=== PATIENT | male | born 1985 | race Caucasian/White ===

== ENCOUNTER 2018-09-15 09:08 | Emergency (ER) | payer OTHER, SELFPAY ==
[2018-09-15 09:20] VITALS: BP 165/105; PULSE 73; RESP 18; TEMP 36.4; O2SAT 100; BMI 25.0
--- NOTE | 2018-10-05 08:09 | ED.EYEPROB ---
HPI - Eye Problem General Chief complaint: Eye Problems Stated complaint: PINK EYES Time Seen by Provider: 09/15/18 09:52 Source: patient Mode of arrival: ambulatory Limitations: no limitations History of Present Illness HPI Narrative: Patient comes emergency department complaining that his eyes are red, itching, and burning. Patient states he just flew back from [place] [place] with the , and that his eyes started to bother him on the flight. Patient states he has had some thick mucus discharge. He states his vision is slightly blurred, but for the most part, seems normal. Patient denies any URI symptoms or being exposed to anybody that has the same illness that he knows of. Patient denies any other complaints at this time, and states he has not been ill with anything else. Related Data Previous Rx's Medication Instructions Recorded gentamicin 1 drop EYE-BOTH BID #5 ml 09/15/18 Allergies Allergy/AdvReac Type Severity Reaction Status Date / Time No Known Drug Allergies Allergy Verified 09/15/18 09:50 Review of Systems Constitutional Denies chills, Denies fever(s), Denies lethargy and Denies weakness Eyes Denies change in vision, Reports eye discharge, Reports irritation and Denies loss of vision Comments: Redness ENT Ears, Nose, Mouth, and Throat: Denies change in voice, Denies neck pain and Denies sore throat Cardiovascular Denies chest pain, Denies irregular heart rhythm, Denies lightheadedness, Denies palpitations, Denies dyspnea, Denies dyspnea on exertion and Denies orthopnea Respiratory Denies cough, Denies dyspnea, Denies dyspnea on exertion and Denies wheezing Gastrointestinal Gastrointestinal: Denies abdominal pain, Denies change in bowel habits, Denies diarrhea, Denies nausea and Denies vomiting Genitourinary Denies hematuria, Denies flank pain, Denies urinary incontinence and Denies urinary urgency Musculoskeletal Denies neck pain Integumentary/Breasts Denies pruritus, Denies erythema, Denies rash and Denies wounds Neurologic Denies confusion, Denies loss of vision and Denies weakness Psychiatric Denies anxiety, Denies confusion, Denies depression, Denies homicidal ideation and Denies suicidal ideation Endocrine Denies palpitations Hematologic/Lymphatic Denies easy bruising Allergic/Immunologic Denies wheezing [facility] Medical History Healthy adult (Acute) Surgical History No pertinent past surgical history (Acute) Social History Smoking Status: Never smoker Social History Smoking Status: Never smoker Exam Initial Vital Signs Initial Vital Signs: Vital Signs Temperature 97.5 F L 09/15/18 09:20 Pulse Rate 73 09/15/18 09:20 Respiratory Rate 18 09/15/18 09:20 Blood Pressure 165/105 H 09/15/18 09:20 Pulse Oximetry 100 09/15/18 09:20 Const General: cooperative and well developed Nutritional Appearance: well nourished Orientation: alert, awake, oriented x3 and not confused HENMT Head: normocephalic and atraumatic Ears: external ears normal Nose: external nose normal and No nasal discharge Face and sinus: face symmetric, no sinus tenderness and No dry mucous membranes Mouth: oral mucosae normal and moist mucous membranes Teeth and gingiva: dentition normal Eyes Eyelids: eyelids normal Conjunctivae: conjunctival abnormality (Injection) bilaterally Sclera: sclerae normal Pupils: PERRL EOM: EOM intact bilaterally Neck Neck: normal visual inspection, trachea midline, No lymphadenopathy, No midline deformity and No JVD Lymphatic: No lymphedema Chest Chest: normal inspection of the chest Resp Effort & Inspection: normal respiratory effort, able to speak in complete sentences, no respiratory distress and no use of accessory muscles Auscultation: clear to auscultation bilaterally, no rales, no rhonchi and no wheezes Cardio Rate: regular rate Rhythm: regular rhythm Heart Sounds: no click, no gallops, no murmurs and no rubs Pulses: normal peripheral pulses GI Inspection: non-distended Palpation: soft, no hepatosplenomegaly, No guarding, No pulsatile mass and No tender Back/Spine/Pelvis Back: No CVA tenderness Cervical Spine: cervical ROM normal and No pain with cervical ROM Thoracic/Lumbar Spine: thoracic and lumbar spine normal to inspection Skin General: no rashes or lesions noted, No jaundice and No petechiae Neuro General: alert, oriented x3, gait normal and no focal motor deficits Speech: speech normal Extrem General: full ROM, no clubbing, cyanosis or edema, no pedal edema and no calf tenderness Psych Appearance: well kempt Mental Status: mental status grossly normal Attitude: cooperative Thought Content: normal and suicidality Judgment: judgment good Course Course Narrative: Patient's history and exam are consistent with conjunctivitis. I have prescribed the patient had antibiotic drops, we discussed symptomatic management at home. We have also discussed the usual indications for return, as well as indications for follow-up with Ophthalmology. MDM - Eye Problem Medical Records Attestation: I reviewed the patient's medical records. Discharge Plan Departure Patient Disposition: Home Clinical Impression: Conjunctivitis Discharge Date/Time: 09/15/18 10:18 Interventions: ED Discharge Assessment Last Done: 09/15/18 10:18 Instructions: DI for Conjunctivitis Activity Restrictions/Additional Instructions: If symptoms are not better in the next 5 days, please follow up with the marketing content specialist. Prescriptions: New gentamicin 0.3 % drops 1 drop EYE-BOTH BID Qty: 5 RF: 0 Referrals: [facility] [Provider Group]
== END 2018-09-15 10:18 | disposition home or self-care (01) ==
PROVIDERS: Emergency Provider Emergency Medicine
DX: H10.9 Unspecified conjunctivitis (principal)
CPT/HCPCS: 99282; 99283